=== PATIENT | female | born 2000 | race Caucasian/White ===

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

== ENCOUNTER 2021-04-29 12:31 | Emergency (ER) | payer OTHER ==
[~2021-04-29] VITALS: Ht 157.5 cm; Wt 45.4 kg
[~2021-04-29 12:31] MED LIST changes: +KETO10 PO
== END 2021-04-29 17:36 | disposition home or self-care (01) ==
LOC: ER 12:31
DX: U07.1 COVID-19 (principal); F17.200 Nicotine dependence, unspecified, uncomplicated
CPT/HCPCS: 99282

== ENCOUNTER → 2023-03-03 | Outpatient (CLI) | payer OTHER ==
[2023-03-05 07:13] LABS: HPV 16 Negative (Negative); HPV 18 Negative (Negative); HPV OTHER HR TYPES Negative (Negative)
== END | disposition home or self-care (01) ==
LOC: LAB SHORT 14:40 → LAB 14:40
PROVIDERS: Registered Nurse Community Health
DX: Z12.4 Encounter for screening for malignant neoplasm of cervix (principal)
CPT/HCPCS: 87624; G0145

== ENCOUNTER → 2024-08-25 | Outpatient (CLI) | payer BC, OTHER | LOC: LAB 19:05 → LAB SHORT 19:05 | DX: R30.0 Dysuria (principal) | CPT/HCPCS: 87077; 87086; 87186 ==

== ENCOUNTER → 2024-10-06 | Outpatient (CLI) | payer BC, OTHER ==
[2024-10-06 19:24] LABS: Candida Group, PCR NOT DETECTED (NOT DETECT); Candida glabrata-krusei, PCR NOT DETECTED (NOT DETECT)
[2024-10-06 20:18] LABS: Bacterial Vaginosis PCR Positive (NEGATIVE)
== END | disposition home or self-care (01) ==
LOC: LAB 14:24 → LAB SHORT 14:24
PROVIDERS: Registered Nurse Community Health
DX: N89.8 Other specified noninflammatory disorders of vagina (principal)
CPT/HCPCS: 81515

== ENCOUNTER → 2025-01-05 | Outpatient (CLI) | payer BC, OTHER ==
[2025-01-05 21:05] LABS: Candida glabrata-krusei, PCR NOT DETECTED (NOT DETECT)
[2025-01-05 21:09] LABS: Bacterial Vaginosis PCR Positive (NEGATIVE); Candida Group, PCR DETECTED (NOT DETECT)
[2025-01-05 21:37] LABS: Chlamydia Trachomatis Vaginal NOT DETECTED (NOT DETECT); Neisseria Gonorrhoea Vaginal NOT DETECTED (NOT DETECT)
== END ==
LOC: LAB 18:31 → LAB SHORT 18:31
PROVIDERS: Emergency Medicine
DX: N89.8 Other specified noninflammatory disorders of vagina (principal)
CPT/HCPCS: 81515; 87491; 87591

== ENCOUNTER → 2025-06-05 | Outpatient (CLI) | payer BC | LOC: LAB 18:40 → LAB SHORT 18:40 | DX: N39.0 Urinary tract infection, site not specified (principal); R31.9 Hematuria, unspecified | CPT/HCPCS: 87077; 87086; 87186 ==

== ENCOUNTER → 2025-08-08 | Outpatient (CLI) | payer BC | LOC: LAB SHORT 18:39 → LAB 18:39 | DX: N39.0 Urinary tract infection, site not specified (principal) | CPT/HCPCS: 87086 ==